=== PATIENT | male | born 1955 | race African-American/Black ===

== ENCOUNTER 2016-07-07 08:35 | Inpatient (IN) | payer OTHER ==
[2016-07-07 10:02] VITALS: BMI 26.5
--- NOTE | 2016-07-07 12:59 | HP ---
COWS - Scale Resting Pulse: 1= [place] 81-100 Sweatin= Chills/Flushing Restless Observation: 3= Extraneous Movement Pupil Size: 2= Moderately Dilated Bone or Joint Aches: 4=Acute Joint/Muscle Pain Runny Nose/ Eye Tearin= Runny Nose/Eyes GI Upset > 30mins: 3= Vomiting/Diarrhea Tremor Observation: 2= Slight Tremor Visible Yawning Observation: 1= 1-2x During Session Anxiety or Irritability: 2=Irritable/Anxious Goose Flesh Skin: 0=Smooth Skin COWS Score: 21 Admission [facility] Chief Complaint: DETOX TREATMENT FOR HEROIN DEPENDENCE Allergies/Adverse Reactions: Allergies Allergy/AdvReac Type Severity Reaction Status Date / Time Fish Containing Products Allergy Severe Hives Verified 07/07/16 10:47 penicillin G Allergy Severe Hives Verified 07/07/16 10:47 peanut Allergy Difficulty Verified 07/07/16 10:47 Breathing History of Present Illness: 61 Y/O MALE WITH A HX OF HEROIN DEPENDENCE AND XANAX USE SEEKING DETOX TX. Exam Limitations: No Limitations - Ebola screening Have you traveled outside of the country in the last 21 days: No Have you had contact with anyone from an Ebola affected area: No Have you been sick,other than usual withdrawal symptoms: No Do you have a fever: No - Review of Systems Constitutional: Loss of Appetite, Night Sweats, Changes in sleep, Unintentional Wgt. Loss EENT: reports: Blurred Vision, Tearing, Nose Congestion, Dental Problems ( MISSING TEETH) Respiratory: reports: Shortness of Breath (HX ASTHMA), Wheezing Cardiac: reports: Lightheadedness GI: reports: Constipated, Diarrhea, Nausea, Poor Appetite, Poor Fluid Intake, Vomiting, Abdominal cramping : reports: No Symptoms Reported Musculoskeletal: reports: Back Pain, Joint Pain, Muscle Pain Integumentary: reports: Bruising (IVD INJ SITES ON BOTH HANDS) Neuro: reports: Numbness, Tingling, Unsteady Gait, Dizziness Endocrine: reports: No Symptoms Reported Hematology: reports: No Symptoms Reported Psychiatric: reports: Orientated x3 Other Systems: Reviewed and Negative Patient History - Patient Medical History Hx Anemia: No Hx Asthma: Yes (MDI) Hx Chronic Obstructive Pulmonary Disease (COPD): No Hx Cardiac Disorders: No Hx Hypertension: Yes (ON [place] 50 MG DAILY) HX Cerebrovascular Accident: No Hx Seizures: No Hx Diabetes: No Hx Gastrointestinal Disorders: No Hx Genitourinary Disorders: No Hx Sexually Transmitted Disorders: No Hx Renal Disease (ESRD): No Hx Thyroid Disease: No Hx Human Immunodeficiency Virus (HIV): No (NEGATIVE HX) Hx Hepatitis C: No Hx Depression: No Hx Suicide Attempt: No (DENIES) Hx Schizophrenia: No - Patient Surgical History Past Surgical History: No Hx Neurologic Surgery: No Hx Cataract Extraction: No Hx Cardiac Surgery: No Hx Lung Surgery: No Hx Breast Surgery: No Hx Breast Biopsy: No Hx Abdominal Surgery: No Hx Appendectomy: No Hx Cholecystectomy: No Hx Genitourinary Surgery: No Hx Orthopedic Surgery: No Anesthesia Reaction: No - PPD History Previous Implant?: Yes Documented Results: Negative w/o proof Implanted On Prior [facility] Admission?: No PPD to be Administered?: Yes - Reproductive History Patient is a Female of Child Bearing Age (11 -55 yrs old): No (MALE) - Smoking Cessation Smoking history: Former smoker Have you smoked in the past 12 months: No If you are a former smoker, when did you quit?: 1997 Hx Chewing Tobacco Use: No Initiated information on smoking cessation: No - Substance & Tx. History Hx Alcohol Use: No (DENIES) Hx Substance Use: Yes (HEROIN/XANAX) Substance Use Type: Heroin, Tranquilizers Hx Substance Use Treatment: Yes ([facility]) - Substances Abused Heroin Route: Injection Frequency: Daily Amount used: 20-25 bags Age of first use: 33 Date of Last Use: 07/06/16 Xanax Route: Oral Frequency: 1-2 times per week Amount used: 4-6 mg. Age of first use: 60 Date of Last Use: 07/03/16 Family Disease History - Family Disease History Family History: Denies Admission Physical Exam BHS - Vital Signs Vital Signs: Vital Signs - 24 hr 07/07/16 10:00 Temperature 96.2 F L Pulse Rate 81 Respiratory 18 Rate Blood Pressure 118/66 - Physical General Appearance: Yes: Moderate Distress, Irritable, Anxious HEENTM: Yes: EOMI, Normocephalic, CLAUDIA, Pharynx Normal, Photophobia Respiratory: Yes: Chest Non-Tender, Lungs Clear, Normal Breath Sounds, No Respiratory Distress Neck: Yes: No masses,lesions,Nodules, Supple, Trachea in good position Breast: Yes: Breast Exam Deferred Cardiology: Yes: Regular Rhythm, Regular Rate, S1, S2 Abdominal: Yes: Normal Bowel Sounds, Non Tender, Soft Genitourinary: Yes: Other (N/C) Back: Yes: Within Normal Limits Musculoskeletal: Yes: full range of Motion, Gait Steady Extremities: Yes: Normal Range of Motion, Non-Tender Neurological: Yes: gore cutter II-XII NML intact, Fully Oriented, Alert, Motor Strength 5/5 Integumentary: Yes: Dry, Warm, Track Dillard (BOTH FOREARMS) Lymphatic: Yes: Within Normal Limits - Diagnostic (1) Opioid dependence with withdrawal Current Visit: Yes Status: Acute (2) Sedative abuse Current Visit: Yes Status: Suspected (3) History of asthma Current Visit: Yes Status: Acute (4) Hypertension Current Visit: Yes Status: Chronic Qualifiers: Hypertension type: essential hypertension Qualified Code(s): I10 - Essential (primary) hypertension Cleared for Admission [facility] - Detox or Rehab [facility] Level of Care: Medically Managed Detox Regimen/Protocol: Methadone [facility] Breath Alcohol Content Breath Alcohol Content: 0 Urine Drug Screen - Results Drug Screen Negative: No Urine Drug Screen Results: OPI-Opiates, OXY-Oxycodone
[2016-07-07] MEDS ORDERED: ACETAMINOPHEN 325 MG TABLET (FP) PO PRN (13:17)
[2016-07-07] MEDS ORDERED: IBUPROFEN 400 MG TABLET (FP) PO PRN (13:17)
[2016-07-07] MEDS ORDERED: diphenhydrAMINE HCL 50 MG CAPSULE PO PRN (13:17)
[2016-07-07] MEDS ORDERED: MAGNESIUM HYDROX 2400MG/30ML ORAL SUSPENSION 30 ML CUP PO PRN (13:17)
[2016-07-07] MEDS ORDERED: hydrOXYzine PAMOATE 25 MG CAPSULE (FP) PO PRN (13:17)
[2016-07-07] MEDS ORDERED: P-EPHED 60MG/TRIPROLIDI 2.5MG TABLET PO PRN (13:17)
[2016-07-07] MEDS ORDERED: guaiFENesin/D-METHORPHAN HB 10 ML UNIT-DOSE CUPS PO PRN (13:17)
[2016-07-07] MEDS ORDERED: MENTHOL/PHENOL 1 EACH UD MM PRN (13:17)
[2016-07-07] MEDS ORDERED: MAGNESIUM CITRATE 300 ML BOTTLE PO PRN (13:17)
[2016-07-07] MEDS ORDERED: MAG HYDROX/AL HYDROX/SIMETH 30 ML UNIT-DOSE CUP PO PRN (13:17)
[2016-07-07] MEDS ORDERED: LOPERAMIDE HCL 2 MG CAPSULE PO PRN (13:17)
[2016-07-07] MEDS: diazePAM 5 MG TABLET PO PRN (14:04)
[2016-07-07] MEDS ORDERED: METHADONE HCL 10 MG TABLET (FOR DETOX USE ONLY) PO ONE ×2 (14:15→23:00)
[2016-07-07] MEDS ORDERED: ALBUTEROL SO4 6.7 GM HFA INHALER IH PRN (16:20)
[2016-07-07 16:46] LABS: URINE APPEARANCE CLEAR; URINE BILIRUBIN NEGATIVE (NEGATIVE); URINE BLOOD NEGATIVE (NEGATIVE); URINE COLOR YELLOW; URINE GLUCOSE (UA) NEGATIVE (NEGATIVE); URINE KETONE NEGATIVE (NEGATIVE); URINE LEUK ESTERASE NEGATIVE (NEGATIVE); URINE NITRITE NEGATIVE (NEGATIVE); URINE PROTEIN NEGATIVE (NEGATIVE); URINE UROBILINOGEN NEGATIVE E.U./dl (0.2-1.0)
[2016-07-07] MEDS: LOSARTAN POTASSIUM 50 MG TABLET (FP) PO SCH (18:11)
[2016-07-07] MEDS: BUDESONIDE/FORMETEROL FUMARATE 160/4.5 mcg INHALER IH SCH (22:59)
[2016-07-07] MEDS: THIAMINE HCL 100 MG TABLET (FP) PO SCH (22:59)
--- NOTE | 2016-07-07 23:00 | PN ---
S Progress Note Note: received nurse informed, bp down from 156/97 to 140/87 through none pharmaceutical intervention continue detox
[2016-07-08] MEDS ORDERED: METHADONE HCL 10 MG TABLET (FOR DETOX USE ONLY) PO ONE (10:00)
[2016-07-08 10:28] LABS: MCH 28.7 pg (25.7-33.7); MCHC 33.1 g/dl (32.0-35.9); MEAN CELL VOLUME 86.5 fl (80-96); MEAN PLT VOLUME 9.3 fl (7.5-11.1); PLATELET COUNT 275 K/MM3 (134-434); RDW 13.9 % (11.9-15.9)
[2016-07-08] MEDS: LOSARTAN POTASSIUM 50 MG TABLET (FP) PO SCH (10:28)
[2016-07-08] MEDS: PRENATAL VITAMINS W/ FOLIC ACID TABLET (FP) PO SCH (10:28)
[2016-07-08] MEDS: BUDESONIDE/FORMETEROL FUMARATE 160/4.5 mcg INHALER IH SCH ×2 (10:31→22:57)
[2016-07-08 10:58] LABS: ALBUMIN 3.6 g/dl (3.4-5.0); CALCIUM 9.3 mg/dL (8.5-10.1)
[2016-07-08 11:02] LABS: BILIRUBIN,TOTAL 0.7 mg/dL (0.2-1.0); CREATININE 1.3 mg/dL (0.7-1.3); TOT PROT 7.5 g/dl (6.4-8.2)
[2016-07-08 11:23] LABS: SICKLE CELL SCREEN NEGATIVE (NEGATIVE)
--- NOTE | 2016-07-08 12:31 | EKG ---
Test Reason : Blood Pressure : / mmHG Vent. Rate : 058 BPM Atrial Rate : 058 BPM P-R Int : 134 ms QRS Dur : 092 ms QT Int : 424 ms P-R-T Axes : 071 -24 -04 degrees QTc Int : 416 ms SINUS BRADYCARDIA WITH SINUS ARRHYTHMIA MINIMAL VOLTAGE CRITERIA FOR LVH, MAY BE NORMAL VARIANT BORDERLINE ECG NO PREVIOUS ECGS AVAILABLE Confirmed by BORIS GONSALES MD ([id number]) on 07/08/2016 12:30:53 PM Referred By: Confirmed By:BORIS GONSALES MD
--- NOTE | 2016-07-08 15:19 | PN ---
BHS COWS - Scale Resting Pulse: 0= [place] 80 or Below Sweatin= Chills/Flushing Restless Observation: 1= Difficult to Sit Still Pupil Size: 0= Normal to Room Light Bone or Joint Aches: 2= Severe Diffuse Aches Runny Nose/ Eye Tearin= None GI Upset > 30mins: 3= Vomiting/Diarrhea Tremor Observation of Outstretched Hands: 2= Slight Tremor Visible Yawning Observation: 1= 1-2x During Session Anxiety or Irritability: 2=Irritable/Anxious Goose Flesh Skin: 3=Piloerection COWS Score: 15 S Progress Note (SOAP) Subjective: Vomiting, Diarrhea, Tremors, Body Aches, Sweating, H/A, Interrupted sleep. Objective: PT. A & O X 1 (DISORIENTED ABOUT DAY / DATE). PT. OBSERVED AMBULATING ON UNIT. 07/08/16 15:16 Vital Signs Temperature 96.4 F L 07/08/16 13:29 Pulse Rate 72 07/08/16 13:29 Respiratory Rate 18 07/08/16 13:29 Blood Pressure 160/99 07/08/16 13:29 O2 Sat by Pulse Oximetry (%) Laboratory Last Values WBC 4.0 K/mm3 (4.0-10.0) 07/08/16 06:00 RBC 4.16 M/mm3 (4.00-5.60) 07/08/16 06:00 Hgb 11.9 GM/dL (11.7-16.9) 07/08/16 06:00 Hct 36.0 % (35.4-49) 07/08/16 06:00 MCV 86.5 fl (80-96) 07/08/16 06:00 MCHC 33.1 g/dl (32.0-35.9) 07/08/16 06:00 RDW 13.9 % (11.9-15.9) 07/08/16 06:00 Plt Count 275 K/MM3 (134-434) 07/08/16 06:00 MPV 9.3 fl (7.5-11.1) 07/08/16 06:00 Sickle Cell Screen Negative (NEGATIVE) 07/08/16 06:00 Sodium 142 mmol/L (136-145) 07/08/16 06:00 Potassium 3.9 mmol/L (3.5-5.1) 07/08/16 06:00 Chloride 102 mmol/L (98-107) 07/08/16 06:00 Carbon Dioxide 29 mmol/L (21-32) 07/08/16 06:00 Anion Gap 11 (8-16) 07/08/16 06:00 BUN 21 mg/dL (7-18) H 07/08/16 06:00 Creatinine 1.3 mg/dL (0.7-1.3) 07/08/16 06:00 Creat Clearance w eGFR 56.31 (>60) 07/08/16 06:00 Random Glucose 137 mg/dL (74-106) H 07/08/16 06:00 Calcium 9.3 mg/dL (8.5-10.1) 07/08/16 06:00 Total Bilirubin 0.7 mg/dL (0.2-1.0) 07/08/16 06:00 AST 122 U/L (15-37) H 07/08/16 06:00 ALT 126 U/L (12-78) H 07/08/16 06:00 Alkaline Phosphatase 233 U/L (45-117) H 07/08/16 06:00 Total Protein 7.5 g/dl (6.4-8.2) 07/08/16 06:00 Albumin 3.6 g/dl (3.4-5.0) 07/08/16 06:00 Urine Color Yellow 07/07/16 13:00 Urine Appearance Clear 07/07/16 13:00 Urine pH 6.0 (5.0-8.0) 07/07/16 13:00 Ur Specific [place] 1.021 (1.001-1.035) 07/07/16 13:00 Urine Protein Negative (NEGATIVE) 07/07/16 13:00 Urine Glucose (UA) Negative (NEGATIVE) 07/07/16 13:00 Urine Ketones Negative (NEGATIVE) 07/07/16 13:00 Urine Blood Negative (NEGATIVE) 07/07/16 13:00 Urine Nitrite Negative (NEGATIVE) 07/07/16 13:00 Urine Bilirubin Negative (NEGATIVE) 07/07/16 13:00 Urine Urobilinogen Negative E.U./dl (0.2-1.0) 07/07/16 13:00 Ur Leukocyte Esterase Negative (NEGATIVE) 07/07/16 13:00 LABS NOTED. Assessment: 07/08/16 15:17 WITHDRAWAL SYMPTOMS. Plan: CONTINUE DETOX. D/C MAGNESIUM-CONTAINING MEDS. BGM ACBK TOMORROW. ADVISED PATIENT TO FOLLOW-UP WITH VISUAL [facility] REHAB MEDICAL PROVIDER AFTER DISCHARGER FROM DETOX FOR GENERAL MEDICAL ASSESSMENT AND FOR ABNORMAL ADMISSION LAB VALUES.
[2016-07-08] MEDS ORDERED: ONDANSETRON *ODT* 4 MG TABLET SL PRN (15:20)
[2016-07-08] MEDS: THIAMINE HCL 100 MG TABLET (FP) PO SCH (22:18)
[2016-07-09] MEDS ORDERED: METHADONE HCL 5 MG TABLET (FOR DETOX USE ONLY) PO ONE (10:00)
[2016-07-09] MEDS: BUDESONIDE/FORMETEROL FUMARATE 160/4.5 mcg INHALER IH SCH ×2 (10:09→22:09)
[2016-07-09] MEDS: PRENATAL VITAMINS W/ FOLIC ACID TABLET (FP) PO SCH (10:09)
[2016-07-09] MEDS: LOSARTAN POTASSIUM 50 MG TABLET (FP) PO SCH (10:09)
--- NOTE | 2016-07-09 16:01 | PN ---
BHS COWS - Scale Resting Pulse: 0= [place] 80 or Below Sweatin= Chills/Flushing Restless Observation: 3= Extraneous Movement Pupil Size: 0= Normal to Room Light Bone or Joint Aches: 2= Severe Diffuse Aches Runny Nose/ Eye Tearin= Runny Nose/Eyes GI Upset > 30mins: 3= Vomiting/Diarrhea Tremor Observation of Outstretched Hands: 2= Slight Tremor Visible Yawning Observation: 0= None Anxiety or Irritability: 2=Irritable/Anxious Goose Flesh Skin: 0=Smooth Skin COWS Score: 15 BHS Progress Note (SOAP) Subjective: N/v/d, chills, tremor, interrupted sleep Objective: 07/09/16 16:00 Last Vital Signs Temp Pulse Resp BP Pulse Ox 97.9 F 67 18 178/110 07/09/16 10:38 07/09/16 10:38 07/09/16 10:38 07/09/16 10:38 Laboratory Tests 07/07/16 07/08/16 07/08/16 13:00 06:00 06:00 WBC 4.0 RBC 4.16 Hgb 11.9 Hct 36.0 MCV 86.5 MCHC 33.1 RDW 13.9 Plt Count 275 MPV 9.3 Sickle Cell Screen Negative Sodium 142 Potassium 3.9 Chloride 102 Carbon Dioxide 29 Anion Gap 11 BUN 21 H Creatinine 1.3 Creat Clearance w eGFR 56.31 Random Glucose 137 H Calcium 9.3 Total Bilirubin 0.7 AST 122 H ALT 126 H Alkaline Phosphatase 233 H Total Protein 7.5 Albumin 3.6 Urine Color Yellow Urine Appearance Clear Urine pH 6.0 Ur Specific [place] 1.021 Urine Protein Negative Urine Glucose (UA) Negative Urine Ketones Negative Urine Blood Negative Urine Nitrite Negative Urine Bilirubin Negative Urine Urobilinogen Negative Ur Leukocyte Esterase Negative RPR Titer 07/08/16 06:00 WBC RBC Hgb Hct MCV MCHC RDW Plt Count MPV Sickle Cell Screen Sodium Potassium Chloride Carbon Dioxide Anion Gap BUN Creatinine Creat Clearance w eGFR Random Glucose Calcium Total Bilirubin AST ALT Alkaline Phosphatase Total Protein Albumin Urine Color Urine Appearance Urine pH Ur Specific [place] Urine Protein Urine Glucose (UA) Urine Ketones Urine Blood Urine Nitrite Urine Bilirubin Urine Urobilinogen Ur Leukocyte Esterase RPR Titer Nonreactive Labs noted Assessment: 07/09/16 16:04 Withdrawal symptoms Plan: Continue detox Continue losartan 50mg for htn
[2016-07-09] MEDS: THIAMINE HCL 100 MG TABLET (FP) PO SCH (22:08)
[2016-07-09] MEDS: ZOLPIDEM TARTRATE 10 MG TABLET (PARK CARE ONLY) PO PRN (22:09)
[2016-07-10] MEDS: diazePAM 5 MG TABLET PO PRN (06:22)
[2016-07-10] MEDS ORDERED: METHADONE HCL 5 MG TABLET (FOR DETOX USE ONLY) PO ONE (10:00)
[2016-07-10] MEDS: PRENATAL VITAMINS W/ FOLIC ACID TABLET (FP) PO SCH (10:16)
[2016-07-10] MEDS: LOSARTAN POTASSIUM 50 MG TABLET (FP) PO SCH (10:16)
[2016-07-10] MEDS: BUDESONIDE/FORMETEROL FUMARATE 160/4.5 mcg INHALER IH SCH ×2 (10:16→23:11)
--- NOTE | 2016-07-10 13:20 | PN ---
BHS Progress Note (SOAP) Subjective: Sweating,interrupted sleep,restless Objective: 07/10/16 13:18 Vital Signs - 8 hr 07/10/16 07/10/16 07/10/16 06:31 08:22 09:51 Temperature 97.0 F L 97 F L Pulse Rate 68 67 Respiratory 18 19 Rate Blood Pressure 154/104 137/93 147/98 07/10/16 13:01 Temperature 97.6 F Pulse Rate 56 L Respiratory 18 Rate Blood Pressure 149/99 Laboratory Tests 07/07/16 07/08/16 07/08/16 13:00 06:00 06:00 WBC 4.0 RBC 4.16 Hgb 11.9 Hct 36.0 MCV 86.5 MCHC 33.1 RDW 13.9 Plt Count 275 MPV 9.3 Sickle Cell Screen Negative Sodium 142 Potassium 3.9 Chloride 102 Carbon Dioxide 29 Anion Gap 11 BUN 21 H Creatinine 1.3 Creat Clearance w eGFR 56.31 Random Glucose 137 H Calcium 9.3 Total Bilirubin 0.7 AST 122 H ALT 126 H Alkaline Phosphatase 233 H Total Protein 7.5 Albumin 3.6 Urine Color Yellow Urine Appearance Clear Urine pH 6.0 Ur Specific [place] 1.021 Urine Protein Negative Urine Glucose (UA) Negative Urine Ketones Negative Urine Blood Negative Urine Nitrite Negative Urine Bilirubin Negative Urine Urobilinogen Negative Ur Leukocyte Esterase Negative RPR Titer 07/08/16 06:00 WBC RBC Hgb Hct MCV MCHC RDW Plt Count MPV Sickle Cell Screen Sodium Potassium Chloride Carbon Dioxide Anion Gap BUN Creatinine Creat Clearance w eGFR Random Glucose Calcium Total Bilirubin AST ALT Alkaline Phosphatase Total Protein Albumin Urine Color Urine Appearance Urine pH Ur Specific [place] Urine Protein Urine Glucose (UA) Urine Ketones Urine Blood Urine Nitrite Urine Bilirubin Urine Urobilinogen Ur Leukocyte Esterase RPR Titer Nonreactive labs noted we'll repeat liver enzymes. Assessment: 07/10/16 13:19 Withdrawal sx. Plan: Continue detox
[2016-07-10] MEDS: ZOLPIDEM TARTRATE 10 MG TABLET (PARK CARE ONLY) PO PRN (22:17)
[2016-07-10] MEDS: THIAMINE HCL 100 MG TABLET (FP) PO SCH (22:17)
[2016-07-11] MEDS ORDERED: METHADONE HCL 10 MG TABLET (FOR DETOX USE ONLY) PO ONE (10:00)
[2016-07-11] MEDS: BUDESONIDE/FORMETEROL FUMARATE 160/4.5 mcg INHALER IH SCH ×2 (10:23→22:10)
[2016-07-11] MEDS: PRENATAL VITAMINS W/ FOLIC ACID TABLET (FP) PO SCH (10:23)
[2016-07-11] MEDS: cloNIDine HCL 0.1 MG TABLET PO SCH ×2 (10:25→22:11)
[2016-07-11] MEDS: LOSARTAN POTASSIUM 50 MG TABLET (FP) PO SCH (10:25)
[2016-07-11] MEDS: CYCLOBENZAPRINE HCL 10 MG TABLET (FP) PO ONE (10:25)
--- NOTE | 2016-07-11 10:31 | PN ---
BHS Progress Note (SOAP) Subjective: ANXIETY,DRENCHING SWEATS/CHILLS, IRRITABILITY,MUSCLE ACHES/SPASMS, INTERMITTENT SLEEP. Objective: 07/11/16 10:31 Vital Signs 07/11/16 07/11/16 07/11/16 03:34 06:19 10:03 Temperature 96.4 F L 96.7 F L Pulse Rate 53 L 79 Respiratory 18 18 18 Rate Blood Pressure 130/99 127/102 Assessment: 07/11/16 10:31 WITHDRAWAL SX Plan: CONTINUE DETOX
[2016-07-11] MEDS: CYCLOBENZAPRINE HCL 10 MG TABLET (FP) PO SCH ×2 (15:01→22:11)
[2016-07-11] MEDS: THIAMINE HCL 100 MG TABLET (FP) PO SCH (22:11)
[2016-07-11] MEDS: ZOLPIDEM TARTRATE 10 MG TABLET (PARK CARE ONLY) PO PRN (22:11)
[2016-07-12] MEDS ORDERED: METHADONE HCL 5 MG TABLET (FOR DETOX USE ONLY) PO ONE (06:00)
[2016-07-12] MEDS: CYCLOBENZAPRINE HCL 10 MG TABLET (FP) PO SCH (07:23)
[2016-07-12 09:39] VITALS: BP 148/101; PULSE 77; TEMP 98.2
[2016-07-12] MEDS: cloNIDine HCL 0.1 MG TABLET PO SCH (09:41)
[2016-07-12] MEDS: LOSARTAN POTASSIUM 50 MG TABLET (FP) PO SCH (09:41)
[2016-07-12] MEDS: PRENATAL VITAMINS W/ FOLIC ACID TABLET (FP) PO SCH (09:42)
--- NOTE | 2016-07-12 10:23 | DS ---
[facility] Detox Discharge Summary Admission Date: 07/07/16 Discharge Date: 07/12/16 - History Present History: Opioid Dependence, Sedative Dependence (SPORADIC USE ABUSE) Additional Comments: DETOX COMPLETED. ALERT O X 3. NAD. PT HAS A PMD THAT HE F/U WITH HIS CARE. Pertinent Past History: ASTHMA HTN - Physical Exam Results Vital Signs: Vital Signs Temperature 98.2 F 07/12/16 09:39 Pulse Rate 77 07/12/16 09:39 Respiratory Rate 18 07/12/16 09:39 Blood Pressure 148/101 07/12/16 09:39 O2 Sat by Pulse Oximetry (%) Pertinent Admission Physical Exam Findings: WITHDRAWAL SX - Treatment Hospital Course: Detox Protocol Followed, Detoxed Safely, Responded well, Discharged Condition Good, Rehab Referral Accepted Patient has Accepted a Rehab Referral to: [facility] - Medication Discharge Medications: Ambulatory Orders Albuterol Sulfate Inhaler - [Ventolin Hfa Inhaler -] 2 inh PO Q4H PRN 07/07/16 Budesonide/Formeterol Fumarate [SYMBICORT 160/4.5mcg -] 1 inh PO BID 07/07/16 Losartan Potassium [Cozaar -] 50 mg PO DAILY 07/07/16 - Diagnosis (1) Opioid dependence with withdrawal Current Visit: Yes Status: Acute (2) Sedative abuse Current Visit: Yes Status: Suspected (3) History of asthma Current Visit: Yes Status: Acute (4) Hypertension Current Visit: Yes Status: Chronic Qualifiers: Hypertension type: essential hypertension Qualified Code(s): I10 - Essential (primary) hypertension - AMA Did Patient Leave Against Medical Advice: No
[2016-07-12] MEDS: BUDESONIDE/FORMETEROL FUMARATE 160/4.5 mcg INHALER IH SCH (11:47)
== END 2016-07-12 10:50 | disposition home or self-care (01) | DRG 773 ==
LOC: YASAS 08:35 → Y3N 12:36
PROVIDERS: ADMIT Internal Medicine; ATTEND Internal Medicine
PROC: HZ2ZZZZ Detoxification Services for Substance Abuse Treatment (ICD-10-PCS; principal; 2016-07-07)
DX: F11.23 Opioid dependence with withdrawal (principal); F13.10 Sedative, hypnotic or anxiolytic abuse, uncomplicated; I10 Essential (primary) hypertension; J45.909 Unspecified asthma, uncomplicated; Z87.891 Personal history of nicotine dependence; Z59.0 Homelessness
CPT/HCPCS: 36415; 80053; 81003; 85027; 85660; 86593; 93005; 93010

== ENCOUNTER 2022-06-25 08:59 | Inpatient (IN) | payer OTHER ==
[2022-06-25] MEDS ORDERED: amLODIPine BESYLATE 10 MG TABLET (FP) PO ONE (11:33)
[2022-06-25] MEDS ORDERED: amLODIPine BESYLATE 5 MG TABLET (FP) ONE (11:34)
[2022-06-25 11:52] VITALS: BMI 24.7
[2022-06-25] MEDS ORDERED: cloNIDine HCL 0.1 MG TABLET PO PRN (12:16)
[2022-06-25] MEDS ORDERED: guaiFENesin 600 MG TABLET.ER (FP) PO PRN (12:16)
[2022-06-25] MEDS ORDERED: MAG HYDROX/AL HYDROX/SIMETH 30 ML UNIT-DOSE CUP PO PRN (12:16)
[2022-06-25] MEDS ORDERED: NALOXONE HCL 0.4 MG/ML VIAL IM PRN (12:16)
[2022-06-25] MEDS ORDERED: DICYCLOMINE HCL 10 MG CAPSULE PO PRN (12:16)
[2022-06-25] MEDS ORDERED: POLYETHYLENE GLYCOL (HEALTHYLAX) 3350 17 GM PACKET PO PRN (12:16)
[2022-06-25] MEDS ORDERED: NALOXONE HCL (KLOXXADO) 8 MG SPRAY NS PRN (12:16)
[2022-06-25] MEDS ORDERED: BACLOFEN 10 MG TABLET (FP) PO PRN (12:16)
[2022-06-25] MEDS ORDERED: LOPERAMIDE HCL 2 MG CAPSULE PO PRN (12:16)
[2022-06-25] MEDS ORDERED: IBUPROFEN 600 MG TABLET (FP) PO PRN (12:16)
[2022-06-25] MEDS ORDERED: methaDONE HCL 10 MG TABLET (FOR DETOX USE ONLY) PO ONE (12:16)
[2022-06-25] MEDS ORDERED: BENZOCAINE/MENTHOL (CHLORASEPTIC ) LOZENGE MM PRN (12:16)
[2022-06-25] MEDS ORDERED: MAGNESIUM HYDROX 2400MG/30ML ORAL SUSPENSION 30 ML CUP PO PRN (12:16)
[2022-06-25] MEDS ORDERED: BENZONATATE 200 MG CAPSULE PO PRN (12:16)
[2022-06-25] MEDS ORDERED: BISMUTH SUBSALICYLATE 524 MG/30 ML PO PRN (12:16)
[2022-06-25] MEDS ORDERED: IBUPROFEN 400 MG TABLET (FP) PO PRN (12:16)
[2022-06-25] MEDS: ALBUTEROL SO4 HFA INHALER IH PRN (19:41)
[2022-06-25] MEDS ORDERED: MELATONIN 5 MG TABLETS PO SCH (22:00)
[2022-06-25] MEDS: BUDESONIDE/FORMETEROL FUMARATE 160/4.5 mcg INHALER IH SCH (22:20)
[2022-06-25] MEDS: THIAMINE HCL 100 MG TABLET (FP) PO SCH (22:21)
[2022-06-26] MEDS: LOSARTAN POTASSIUM 50 MG TABLET PO SCH (11:01)
[2022-06-26] MEDS: amLODIPine BESYLATE 10 MG TABLET (FP) PO SCH (11:01)
[2022-06-26] MEDS: PRENATAL VITAMINS W/ FOLIC ACID TABLET (FP) PO SCH (11:01)
[2022-06-26] MEDS: BUDESONIDE/FORMETEROL FUMARATE 160/4.5 mcg INHALER IH SCH ×2 (11:02→22:16)
[2022-06-26 12:00] LABS: HEMATOCRIT 33.2 % (35.4-49); HEMOGLOBIN 10.9 GM/dL (11.7-16.9); MCH 28.3 pg (25.7-33.7); MCHC 32.9 g/dl (32.0-35.9); MEAN CELL VOLUME 85.9 fl (80-96); MEAN PLT VOLUME 8.1 fl (7.5-11.1); PLATELET COUNT 298 10^3/uL (134-434); RBC 3.87 M/mm3 (4.00-5.60); RDW 15.3 % (11.9-15.9); WHITE BLOOD COUNT 5.5 K/mm3 (4.0-10.0)
[2022-06-26] MEDS: PANTOPRAZOLE 40 MG TABLET PO SCH (12:18)
[2022-06-26 12:29] LABS: BLOOD UREA NITROGEN 33.9 mg/dL (7-18)
[2022-06-26 12:31] LABS: CREATININE 2.3 mg/dL (0.55-1.3)
[2022-06-26 12:33] LABS: BILIRUBIN,TOTAL 0.4 mg/dL (0.2-1); TOT PROT 8.7 g/dl (6.4-8.2)
[2022-06-26] MEDS: THIAMINE HCL 100 MG TABLET (FP) PO SCH (22:15)
[2022-06-26] MEDS: SUVOREXANT 10 MG TABLET PO PRN (22:17)
[2022-06-26] MEDS: ALBUTEROL SO4 HFA INHALER IH PRN (22:17)
[2022-06-27] MEDS ORDERED: methaDONE HCL 10 MG TABLET (FOR DETOX USE ONLY) PO ONE (10:00)
[2022-06-27] MEDS: LOSARTAN POTASSIUM 50 MG TABLET PO SCH (10:20)
[2022-06-27] MEDS: amLODIPine BESYLATE 10 MG TABLET (FP) PO SCH (10:20)
[2022-06-27] MEDS: PRENATAL VITAMINS W/ FOLIC ACID TABLET (FP) PO SCH (10:20)
[2022-06-27] MEDS: PANTOPRAZOLE 40 MG TABLET PO SCH (10:21)
[2022-06-27] MEDS: BUDESONIDE/FORMETEROL FUMARATE 160/4.5 mcg INHALER IH SCH ×2 (10:21→22:02)
[2022-06-27] MEDS: ONDANSETRON *ODT* 4 MG TABLET SL PRN (21:09)
[2022-06-27] MEDS: THIAMINE HCL 100 MG TABLET (FP) PO SCH (22:01)
[2022-06-27] MEDS: SUVOREXANT 10 MG TABLET PO PRN (22:01)
[2022-06-27] MEDS: ACETAMINOPHEN 325 MG TABLET (FP) PO PRN (22:30)
[2022-06-28] MEDS: ONDANSETRON *ODT* 4 MG TABLET SL PRN (06:35)
[2022-06-28] MEDS: LOSARTAN POTASSIUM 50 MG TABLET PO SCH (10:47)
[2022-06-28] MEDS: PANTOPRAZOLE 40 MG TABLET PO SCH (10:47)
[2022-06-28] MEDS: ACETAMINOPHEN 325 MG TABLET (FP) PO PRN (10:47)
[2022-06-28] MEDS: amLODIPine BESYLATE 10 MG TABLET (FP) PO SCH (10:47)
[2022-06-28] MEDS: PRENATAL VITAMINS W/ FOLIC ACID TABLET (FP) PO SCH (10:47)
[2022-06-28] MEDS: BUDESONIDE/FORMETEROL FUMARATE 160/4.5 mcg INHALER IH SCH ×2 (10:48→22:25)
[2022-06-28] MEDS ORDERED: TRIMETHOBENZAMIDE HCL 200MG/2ML INJ IM PRN (11:21)
[2022-06-28] MEDS: COLLOIDAL OATMEAL 1 BAR EACH TP PRN (12:33)
[2022-06-28] MEDS: SUVOREXANT 10 MG TABLET PO PRN (22:24)
[2022-06-28] MEDS: THIAMINE HCL 100 MG TABLET (FP) PO SCH (22:24)
[2022-06-29] MEDS ORDERED: methaDONE HCL 10 MG TABLET (FOR DETOX USE ONLY) PO ONE (10:00)
[2022-06-29] MEDS: PANTOPRAZOLE 40 MG TABLET PO SCH (10:23)
[2022-06-29] MEDS: LOSARTAN POTASSIUM 50 MG TABLET PO SCH (10:23)
[2022-06-29] MEDS: PRENATAL VITAMINS W/ FOLIC ACID TABLET (FP) PO SCH (10:23)
[2022-06-29] MEDS: amLODIPine BESYLATE 10 MG TABLET (FP) PO SCH (10:23)
[2022-06-29] MEDS: BUDESONIDE/FORMETEROL FUMARATE 160/4.5 mcg INHALER IH SCH ×2 (10:24→22:24)
[2022-06-29] MEDS: THIAMINE HCL 100 MG TABLET (FP) PO SCH (22:21)
[2022-06-29] MEDS: ACETAMINOPHEN 325 MG TABLET (FP) PO PRN (22:22)
[2022-06-29] MEDS: ALBUTEROL SO4 HFA INHALER IH PRN (22:25)
[2022-06-30] MEDS: LOSARTAN POTASSIUM 50 MG TABLET PO SCH (10:06)
[2022-06-30] MEDS: PANTOPRAZOLE 40 MG TABLET PO SCH (10:06)
[2022-06-30] MEDS: BUDESONIDE/FORMETEROL FUMARATE 160/4.5 mcg INHALER IH SCH ×2 (10:06→23:08)
[2022-06-30] MEDS: amLODIPine BESYLATE 10 MG TABLET (FP) PO SCH (10:06)
[2022-06-30] MEDS: PRENATAL VITAMINS W/ FOLIC ACID TABLET (FP) PO SCH (10:06)
[2022-06-30] MEDS: ALBUTEROL SO4 HFA INHALER IH PRN (12:40)
[2022-06-30] MEDS: COLLOIDAL OATMEAL 1 BAR EACH TP PRN (17:03)
[2022-06-30] MEDS: THIAMINE HCL 100 MG TABLET (FP) PO SCH (23:08)
[2022-07-01 07:12] VITALS: RESP 18
[2022-07-01] MEDS: BUDESONIDE/FORMETEROL FUMARATE 160/4.5 mcg INHALER IH SCH ×2 (09:28→21:25)
[2022-07-01] MEDS: PANTOPRAZOLE 40 MG TABLET PO SCH (09:28)
[2022-07-01] MEDS: amLODIPine BESYLATE 10 MG TABLET (FP) PO SCH (09:28)
[2022-07-01] MEDS: LOSARTAN POTASSIUM 50 MG TABLET PO SCH (09:28)
[2022-07-01] MEDS: PRENATAL VITAMINS W/ FOLIC ACID TABLET (FP) PO SCH (09:28)
[2022-07-01] MEDS: ALBUTEROL SO4 HFA INHALER IH PRN ×2 (09:29→21:26)
[2022-07-01] MEDS: ACETAMINOPHEN 325 MG TABLET (FP) PO PRN (21:24)
[2022-07-01] MEDS: THIAMINE HCL 100 MG TABLET (FP) PO SCH (21:24)
[2022-07-02] MEDS: amLODIPine BESYLATE 10 MG TABLET (FP) PO SCH (10:23)
[2022-07-02] MEDS: PRENATAL VITAMINS W/ FOLIC ACID TABLET (FP) PO SCH (10:23)
[2022-07-02] MEDS: LOSARTAN POTASSIUM 50 MG TABLET PO SCH (10:23)
[2022-07-02] MEDS: PANTOPRAZOLE 40 MG TABLET PO SCH (10:24)
[2022-07-02] MEDS: BUDESONIDE/FORMETEROL FUMARATE 160/4.5 mcg INHALER IH SCH ×2 (10:24→22:56)
[2022-07-02] MEDS: THIAMINE HCL 100 MG TABLET (FP) PO SCH (22:56)
[2022-07-03] MEDS: amLODIPine BESYLATE 10 MG TABLET (FP) PO SCH (09:32)
[2022-07-03] MEDS: PANTOPRAZOLE 40 MG TABLET PO SCH (09:32)
[2022-07-03] MEDS: BUDESONIDE/FORMETEROL FUMARATE 160/4.5 mcg INHALER IH SCH ×2 (09:32→21:52)
[2022-07-03] MEDS: LOSARTAN POTASSIUM 50 MG TABLET PO SCH (09:32)
[2022-07-03] MEDS: PRENATAL VITAMINS W/ FOLIC ACID TABLET (FP) PO SCH (09:32)
[2022-07-03] MEDS: THIAMINE HCL 100 MG TABLET (FP) PO SCH (21:52)
[2022-07-04] MEDS: PRENATAL VITAMINS W/ FOLIC ACID TABLET (FP) PO SCH (10:25)
[2022-07-04] MEDS: LOSARTAN POTASSIUM 50 MG TABLET PO SCH (10:25)
[2022-07-04] MEDS: amLODIPine BESYLATE 10 MG TABLET (FP) PO SCH (10:25)
[2022-07-04] MEDS: PANTOPRAZOLE 40 MG TABLET PO SCH (10:35)
[2022-07-04] MEDS: BUDESONIDE/FORMETEROL FUMARATE 160/4.5 mcg INHALER IH SCH ×2 (10:36→21:51)
[2022-07-04] MEDS: THIAMINE HCL 100 MG TABLET (FP) PO SCH (21:51)
[2022-07-05] MEDS: PRENATAL VITAMINS W/ FOLIC ACID TABLET (FP) PO SCH (10:48)
[2022-07-05] MEDS: amLODIPine BESYLATE 10 MG TABLET (FP) PO SCH (10:49)
[2022-07-05] MEDS: LOSARTAN POTASSIUM 50 MG TABLET PO SCH (10:49)
[2022-07-05] MEDS: PANTOPRAZOLE 40 MG TABLET PO SCH (10:49)
[2022-07-05] MEDS: BUDESONIDE/FORMETEROL FUMARATE 160/4.5 mcg INHALER IH SCH ×2 (10:50→21:42)
[2022-07-05] MEDS: THIAMINE HCL 100 MG TABLET (FP) PO SCH (21:42)
[2022-07-06] MEDS: PANTOPRAZOLE 40 MG TABLET PO SCH (09:50)
[2022-07-06] MEDS: amLODIPine BESYLATE 10 MG TABLET (FP) PO SCH (09:50)
[2022-07-06] MEDS: LOSARTAN POTASSIUM 50 MG TABLET PO SCH (09:50)
[2022-07-06] MEDS: PRENATAL VITAMINS W/ FOLIC ACID TABLET (FP) PO SCH (09:50)
[2022-07-06] MEDS: BUDESONIDE/FORMETEROL FUMARATE 160/4.5 mcg INHALER IH SCH ×2 (09:51→21:11)
[2022-07-06] MEDS: THIAMINE HCL 100 MG TABLET (FP) PO SCH (21:10)
[2022-07-07 07:07] VITALS: BP 154/95; PULSE 93; TEMP 98.2
[2022-07-07] MEDS: PANTOPRAZOLE 40 MG TABLET PO SCH (09:11)
[2022-07-07] MEDS: LOSARTAN POTASSIUM 50 MG TABLET PO SCH (09:11)
[2022-07-07] MEDS: BUDESONIDE/FORMETEROL FUMARATE 160/4.5 mcg INHALER IH SCH (09:11)
[2022-07-07] MEDS: amLODIPine BESYLATE 10 MG TABLET (FP) PO SCH (09:11)
[2022-07-07] MEDS: PRENATAL VITAMINS W/ FOLIC ACID TABLET (FP) PO SCH (09:11)
== END 2022-07-07 09:16 | disposition home or self-care (01) | DRG 895 ==
LOC: YASAS 08:59 → Y6N 12:36 → Y3W 06-30 12:29
PROVIDERS: ADMIT Allergy & Immunology; ATTEND Psychiatry & Neurology Pain Medicine
PROC: HZ42ZZZ Group Counseling for Substance Abuse Treatment, Cognitive-Behavioral (ICD-10-PCS; principal; 2022-06-25)
DX: F11.20 Opioid dependence, uncomplicated (principal); F19.282 Other psychoactive substance dependence with psychoactive substance-induced sleep disorder; F10.20 Alcohol dependence, uncomplicated; F13.10 Sedative, hypnotic or anxiolytic abuse, uncomplicated; F41.9 Anxiety disorder, unspecified; F32.A Depression, unspecified; I10 Essential (primary) hypertension; J45.20 Mild intermittent asthma, uncomplicated; M54.50 Low back pain, unspecified; G89.18 Other acute postprocedural pain; R12 Heartburn; Z87.891 Personal history of nicotine dependence; Z86.73 Personal history of transient ischemic attack (TIA), and cerebral infarction without residual deficits; Z86.19 Personal history of other infectious and parasitic diseases; Z88.0 Allergy status to penicillin; Z91.013 Allergy to seafood
CPT/HCPCS: 36415; 80053; 85027; 86593; 86780; 93005; 93010; C9803-CS; Q0162; U0003; U0005